=== PATIENT | male | born 1960 | race Two or more races ===

== ENCOUNTER 2016-10-26 01:37 | Inpatient (IN) | payer MEDICAID ==
[2016-10-26] VITALS (15 sets, daily range): BP systolic 111–154; BP diastolic 73–103
[~2016-10-26] VITALS: Ht 193 cm; Wt 139.0 kg
[2016-10-26] MEDS ORDERED: CLOPIDOGREL 300 MG TAB PO ONE (02:30)
[2016-10-26] MEDS ORDERED: NITROGLYCERIN 0.4MG/HR TOPICAL PATCH TD ONE (02:30)
[2016-10-26] MEDS ORDERED: MORPHINE SULFATE 4 MG/ML SYRG IV ONE (02:30)
[2016-10-26] MEDS ORDERED: ONDANSETRON HCL 4 MG/2 ML VIAL IV ONE (02:30)
[2016-10-26 02:43] LABS: Basophils # (auto) 0 uL; Basophils % (auto) 0.2 % (0.0-2.0); CONDITION Y; Eosinophils # (auto) 0.1 uL; Eosinophils % (auto) 1.2 % (0.0-7.0); Hemoglobin 11.5 g/dL (13.5-17.5); Lymphocytes # (auto) 0.7 uL; Lymphocytes % (auto) 10.8 % (10.0-50.0); Mean Corpuscular Hemoglobin 28.9 pg (28.0-32.0); Mean Corpuscular Hgb Conc. 32.7 g/dL (32.0-36.0); Mean Corpuscular Volume 88.2 fL (80.0-100.0); Mean Platelet Volume 8.9 fL (7.4-10.4); Monocytes # (auto) 0.7 uL; Monocytes % (auto) 10.6 % (0.0-12.0); Neutrophils # (auto) 4.7 uL; Neutrophils % (auto) 77.2 % (37.0-80.0); Platelet Count (auto) 226 10^3/uL (140-450); Red Cell Distribution Width 15.7 % (11.6-16.0); White Blood Cell 6.1 10^3/uL (4.4-10.8)
[2016-10-26 03:07] LABS: Calcium 8.8 mg/dL (8.5-10.1); Magnesium 1.8 mg/dL (1.6-2.6); Potassium 3.4 mmol/L (3.5-5.1)
[2016-10-26 03:09] LABS: BUN/Creatinine Ratio 12.1
[2016-10-26 03:29] LABS: Temperature: 22.7 C (20.0-25.0)
[2016-10-26 03:31] LABS: Total Protein 7.2 g/dL (6.4-8.2)
[2016-10-26 03:34] LABS: INR 1.19 (0.9-1.15); Partial Thromboplastin Time 28.7 sec (22.64-33.71)
[2016-10-26] MEDS ORDERED: LACTULOSE 20Gm/30ML SOLN PO PRN (06:45)
[2016-10-26] MEDS ORDERED: ONDANSETRON HCL 4 MG/2 ML VIAL IV PRN (06:45)
[2016-10-26] MEDS ORDERED: MORPHINE SULFATE 4 MG/ML SYRG IV PRN (06:45)
[2016-10-26] MEDS ORDERED: NITROGLYCERIN 0.4 MG SL TAB SL PRN (06:45)
[2016-10-26] MEDS: methylPREDNISolone SOD SUCC 125 MG/2 ML VL IV SCH ×2 (07:05→21:09)
[2016-10-26] MEDS: cefTRIAXone 1GM/50ML D5W 50 ML IV SCH (07:25)
[2016-10-26] MEDS: FUROSEMIDE 40 MG/4 ML VIAL IV SCH ×2 (08:00→18:14)
[2016-10-26] MEDS ORDERED: SPIRONOLACTONE 25 MG TAB PO SCH (08:00)
[2016-10-26] MEDS ORDERED: AZITHROMYCIN 500MG/D5W 250ML 250 ML IV ONE (08:00)
[2016-10-26] MEDS: ALBUTEROL SULF 2.5 MG/0.5ML(0.5%) NEB SOLN NEB SCH ×4 (09:54→22:18)
[2016-10-26] MEDS: IPRATROPIUM BROM 0.5 MG/2.5ML INH SOL NEB SCH ×4 (09:54→22:18)
[2016-10-26] MEDS ORDERED: hydrALAZINE HCL 25 MG TAB PO SCH (10:00)
[2016-10-26] MEDS ORDERED: ENOXAPARIN SOD 40 MG/0.4 ML SYRINGE SC SCH (10:00)
[2016-10-26] MEDS ORDERED: METOPROLOL TARTRATE 50 MG TAB PO SCH ×2 (10:00)
[2016-10-26] MEDS: NITROGLYCERIN 0.2MG/HR TOPICAL PATCH TD SCH (10:00)
[2016-10-26] MEDS: ASPirin 81 mg TAB PO SCH (10:45)
[2016-10-26] MEDS: PANTOPRAZOLE SODIUM 40 MG/10 ML VIAL IV SCH (10:45)
[2016-10-26] MEDS: LISINOPRIL 20 MG TAB PO SCH (10:46)
[2016-10-26] MEDS: AMIODARONE HCL 200 MG TAB PO SCH ×2 (10:46→21:10)
[2016-10-26] MEDS: ENALAPRIL MALEATE 10 MG TAB PO SCH (10:49)
[2016-10-26] MEDS: POTASSIUM CHL 20 Meq TABLET PO SCH ×2 (10:52→21:12)
[2016-10-26] MEDS ORDERED: METOPROLOL TARTRATE 50 MG TAB PO ONE (12:30)
[2016-10-26] MEDS ORDERED: PNEUMOCOCCAL VACC POLYS 25 MCG/0.5 ML VIAL IM ONE (13:00)
[2016-10-26] MEDS ORDERED: HEPARIN DRIP/D5W 100UNITS/ML 250 ML IV SCH ×2 (13:49→14:15)
[2016-10-26] MEDS ORDERED: HEPARIN SODIUM (PORCINE) 5000 UNITS/ML 1ML VIAL IV ONE (14:00)
[2016-10-26] MEDS: SODIUM CHLOR 0.9% PF (SALINE LOCK) 10ML VIAL IV SCH ×2 (14:40→21:12)
[2016-10-26] MEDS: HEPARIN DRIP/D5W 100UNITS/ML 250 ML IV SCH (15:26)
[2016-10-26] MEDS ORDERED: RIVAROXABAN 20 MG TAB PO ONE (18:00)
[2016-10-26] MEDS ORDERED: IOHEXOL 350 MG/ML 100ML IJ ONE (18:14)
[2016-10-26] MEDS: ATORVASTATIN 20 MG TAB PO SCH (21:11)
[2016-10-26] MEDS: METOPROLOL TARTRATE 50 MG TAB PO SCH (21:11)
[2016-10-26 23:08] LABS: INR 1.22 (0.9-1.15); Partial Thromboplastin Time 31.1 sec (22.64-33.71)
[2016-10-26 23:10] LABS: Prothrombin Time 13.3 sec (9.37-12.3)
[2016-10-27] VITALS (31 sets, daily range): BP systolic 106–163; BP diastolic 55–113
[2016-10-27] MEDS: IPRATROPIUM BROM 0.5 MG/2.5ML INH SOL NEB SCH ×6 (02:48→22:36)
[2016-10-27] MEDS: ALBUTEROL SULF 2.5 MG/0.5ML(0.5%) NEB SOLN NEB SCH ×6 (02:48→22:36)
[2016-10-27 04:08] LABS: Basophils # (auto) 0 uL; Basophils % (auto) 0.4 % (0.0-2.0); CONDITION Y; Eosinophils # (auto) 0 uL; Hemoglobin 12.1 g/dL (13.5-17.5); Lymphocytes # (auto) 0.6 uL; Lymphocytes % (auto) 7.6 % (10.0-50.0); Mean Corpuscular Hgb Conc. 32.6 g/dL (32.0-36.0); Monocytes # (auto) 0.2 uL; Monocytes % (auto) 2.5 % (0.0-12.0); Neutrophils # (auto) 7.4 uL; Neutrophils % (auto) 89.5 % (37.0-80.0); Platelet Count (auto) 260 10^3/uL (140-450); White Blood Cell 8.2 10^3/uL (4.4-10.8)
[2016-10-27 04:50] LABS: Albumin 3.5 g/dL (3.4-5.0); BUN/Creatinine Ratio 15.8; Bilirubin, Total 0.6 mg/dL (0.2-1.0); Potassium 4.9 mmol/L (3.5-5.1); Total Protein 8.4 g/dL (6.4-8.2)
[2016-10-27] MEDS ORDERED: POTASSIUM CHL 20 Meq TABLET PO ONE (05:00)
[2016-10-27] MEDS: cefTRIAXone 1GM/50ML D5W 50 ML IV SCH (06:14)
[2016-10-27] MEDS: FUROSEMIDE 40 MG/4 ML VIAL IV SCH ×2 (06:14→17:56)
[2016-10-27] MEDS: methylPREDNISolone SOD SUCC 125 MG/2 ML VL IV SCH ×2 (06:15→17:57)
[2016-10-27] MEDS: SODIUM CHLOR 0.9% PF (SALINE LOCK) 10ML VIAL IV SCH ×3 (06:16→22:00)
[2016-10-27 06:28] LABS: INR 1.23 (0.9-1.15); Partial Thromboplastin Time 30.6 sec (22.64-33.71)
[2016-10-27 06:35] LABS: Prothrombin Time 13.4 sec (9.37-12.3)
[2016-10-27] MEDS: HEPARIN DRIP/D5W 100UNITS/ML 250 ML IV SCH (07:36)
[2016-10-27] MEDS: ASPirin 81 mg TAB PO SCH (10:31)
[2016-10-27] MEDS: PANTOPRAZOLE SODIUM 40 MG/10 ML VIAL IV SCH (10:31)
[2016-10-27] MEDS: LISINOPRIL 20 MG TAB PO SCH (10:31)
[2016-10-27] MEDS: POTASSIUM CHL 20 Meq TABLET PO SCH ×2 (10:32→21:26)
[2016-10-27] MEDS: ENALAPRIL MALEATE 10 MG TAB PO SCH (10:32)
[2016-10-27] MEDS: AMIODARONE HCL 200 MG TAB PO SCH ×2 (10:33→21:27)
[2016-10-27] MEDS: AZITHROMYCIN 500MG/D5W 250ML 250 ML IV SCH (10:34)
[2016-10-27] MEDS: METOPROLOL TARTRATE 50 MG TAB PO SCH ×2 (10:34→21:28)
[2016-10-27] MEDS: NITROGLYCERIN 0.2MG/HR TOPICAL PATCH TD SCH (10:35)
[2016-10-27 14:35] LABS: Urine Bilirubin Negative (Negative); Urine Blood Negative /uL (Negative); Urine Color Yellow (Yellow); Urine Glucose Normal (Normal); Urine Hyaline Cast MOD /lpf (0 - 2); Urine Ketone Negative (Negative); Urine Mucus FEW (None Seen); Urine Nitrite Negative (Negative); Urine RBC 3 /hpf (0 - 3); Urine Squamous Epithelial Cell FEW /hpf (<5); Urine Urobilinogen Normal (Negative); Urine pH 5.5 (5.0-8.0)
[2016-10-27] MEDS: RIVAROXABAN 20 MG TAB PO SCH (17:57)
[2016-10-27] MEDS ORDERED: RIVAROXABAN 20 MG TAB PO SCH (18:00)
[2016-10-27] MEDS ORDERED: PATIENTS OWN MEDICATION (XARELTO 20 MG) PO SCH (18:00)
[2016-10-27] MEDS: ATORVASTATIN 20 MG TAB PO SCH (21:28)
[2016-10-28] MEDS: ALBUTEROL SULF 2.5 MG/0.5ML(0.5%) NEB SOLN NEB SCH ×6 (02:20→22:00)
[2016-10-28] MEDS: IPRATROPIUM BROM 0.5 MG/2.5ML INH SOL NEB SCH ×6 (02:22→22:00)
[2016-10-28 05:00] VITALS: BP 151/104
[2016-10-28 05:55] LABS: Basophils # (auto) 0 uL; CONDITION Y; Eosinophils # (auto) 0 uL; Hemoglobin 10.4 g/dL (13.5-17.5); Lymphocytes # (auto) 0.4 uL; Lymphocytes % (auto) 3.4 % (10.0-50.0); Mean Corpuscular Hemoglobin 29.3 pg (28.0-32.0); Mean Corpuscular Hgb Conc. 32.7 g/dL (32.0-36.0); Mean Corpuscular Volume 89.8 fL (80.0-100.0); Mean Platelet Volume 9.6 fL (7.4-10.4); Monocytes # (auto) 0.5 uL; Monocytes % (auto) 4.3 % (0.0-12.0); Neutrophils # (auto) 11.7 uL; Neutrophils % (auto) 92.3 % (37.0-80.0); Platelet Count (auto) 244 10^3/uL (140-450); Red Cell Distribution Width 15.8 % (11.6-16.0); White Blood Cell 12.7 10^3/uL (4.4-10.8)
[2016-10-28] MEDS: cefTRIAXone 1GM/50ML D5W 50 ML IV SCH (06:20)
[2016-10-28] MEDS: methylPREDNISolone SOD SUCC 125 MG/2 ML VL IV SCH ×2 (06:20→18:07)
[2016-10-28] MEDS: FUROSEMIDE 40 MG/4 ML VIAL IV SCH ×2 (06:20→18:07)
[2016-10-28] MEDS: SODIUM CHLOR 0.9% PF (SALINE LOCK) 10ML VIAL IV SCH ×3 (06:20→22:03)
[2016-10-28 06:22] LABS: Albumin 3.2 g/dL (3.4-5.0); BUN/Creatinine Ratio 20.4; Bilirubin, Total 0.5 mg/dL (0.2-1.0); Calcium 9.1 mg/dL (8.5-10.1); Magnesium 2.2 mg/dL (1.6-2.6); Phosphorus 3.3 mg/dL (2.5-4.90); Potassium 4.9 mmol/L (3.5-5.1); Total Protein 7.3 g/dL (6.4-8.2)
[2016-10-28] MEDS ORDERED: LIDOCAINE VISCOUS 2% 15ML UD MT PRN (08:30)
[2016-10-28] MEDS ORDERED: fentaNYL CITRATE 100 MCG/2 ML VL IV ONE (08:30)
[2016-10-28] MEDS ORDERED: MIDAZOLAM HCL 1MG/1ML-2 ML VIAL IV ONE (08:30)
[2016-10-28 09:00] VITALS: BP 141/99
[2016-10-28] MEDS ORDERED: diphenhdrAMINE HCL 50 MG/1 ML VL ONE (09:50)
[2016-10-28] MEDS: NITROGLYCERIN 0.2MG/HR TOPICAL PATCH TD SCH (10:00)
[2016-10-28] MEDS ORDERED: hydrALAZINE HCL 20 MG/ML VL ONE (10:07)
[2016-10-28] MEDS ORDERED: diphenhdrAMINE HCL 50 MG/1 ML VL IV ONE (10:15)
[2016-10-28] MEDS ORDERED: hydrALAZINE HCL 20 MG/ML VL IV ONE (10:15)
[2016-10-28] MEDS: PANTOPRAZOLE SODIUM 40 MG/10 ML VIAL IV SCH (12:21)
[2016-10-28] MEDS: POTASSIUM CHL 20 Meq TABLET PO SCH ×2 (12:22→22:03)
[2016-10-28] MEDS: LISINOPRIL 20 MG TAB PO SCH (12:23)
[2016-10-28] MEDS: AMIODARONE HCL 200 MG TAB PO SCH ×2 (12:23→22:03)
[2016-10-28] MEDS: METOPROLOL TARTRATE 50 MG TAB PO SCH ×2 (12:24→22:04)
[2016-10-28] MEDS: AZITHROMYCIN 500MG/D5W 250ML 250 ML IV SCH (12:24)
[2016-10-28 13:00] VITALS: BP 159/104
[2016-10-28 17:12] VITALS: BP 142/76
[2016-10-28] MEDS: RIVAROXABAN 20 MG TAB PO SCH (18:07)
[2016-10-28 22:00] VITALS: BP 143/98
[2016-10-28] MEDS: ATORVASTATIN 20 MG TAB PO SCH (22:03)
[2016-10-29] MEDS: ALBUTEROL SULF 2.5 MG/0.5ML(0.5%) NEB SOLN NEB SCH ×6 (02:20→22:50)
[2016-10-29] MEDS: IPRATROPIUM BROM 0.5 MG/2.5ML INH SOL NEB SCH ×6 (02:20→22:50)
[2016-10-29 05:00] VITALS: BP 147/97
[2016-10-29] MEDS: FUROSEMIDE 40 MG/4 ML VIAL IV SCH ×2 (06:08→18:34)
[2016-10-29] MEDS: SODIUM CHLOR 0.9% PF (SALINE LOCK) 10ML VIAL IV SCH ×3 (06:08→22:02)
[2016-10-29] MEDS: cefTRIAXone 1GM/50ML D5W 50 ML IV SCH (06:35)
[2016-10-29] MEDS: methylPREDNISolone SOD SUCC 125 MG/2 ML VL IV SCH ×2 (06:36→18:34)
[2016-10-29 08:18] VITALS: BP 147/93
[2016-10-29 09:18] VITALS: BP 128/98
[2016-10-29] MEDS: AZITHROMYCIN 500MG/D5W 250ML 250 ML IV SCH (10:07)
[2016-10-29] MEDS: PANTOPRAZOLE SODIUM 40 MG/10 ML VIAL IV SCH (10:08)
[2016-10-29] MEDS: POTASSIUM CHL 20 Meq TABLET PO SCH ×2 (10:10→22:01)
[2016-10-29] MEDS: LISINOPRIL 20 MG TAB PO SCH (10:11)
[2016-10-29] MEDS: AMIODARONE HCL 200 MG TAB PO SCH ×2 (10:11→22:01)
[2016-10-29] MEDS: METOPROLOL TARTRATE 50 MG TAB PO SCH ×2 (10:12→22:02)
[2016-10-29] MEDS: NITROGLYCERIN 0.2MG/HR TOPICAL PATCH TD SCH (10:13)
[2016-10-29 13:11] VITALS: BP 133/65
[2016-10-29 17:22] VITALS: BP 135/69
[2016-10-29] MEDS: RIVAROXABAN 20 MG TAB PO SCH (18:34)
[2016-10-29] MEDS: ATORVASTATIN 20 MG TAB PO SCH (22:01)
[2016-10-30] MEDS ORDERED: OXYMETAZOLINE HCL 0.05 % NASAL SPRAY 15ML ONE (02:28)
[2016-10-30] MEDS: FUROSEMIDE 40 MG/4 ML VIAL IV SCH ×2 (06:04→18:35)
[2016-10-30] MEDS: SODIUM CHLOR 0.9% PF (SALINE LOCK) 10ML VIAL IV SCH ×3 (06:04→22:15)
[2016-10-30] MEDS: ALBUTEROL SULF 2.5 MG/0.5ML(0.5%) NEB SOLN NEB SCH ×6 (06:23→22:51)
[2016-10-30] MEDS: IPRATROPIUM BROM 0.5 MG/2.5ML INH SOL NEB SCH ×6 (06:23→22:51)
[2016-10-30] MEDS: cefTRIAXone 1GM/50ML D5W 50 ML IV SCH (06:40)
[2016-10-30] MEDS: methylPREDNISolone SOD SUCC 125 MG/2 ML VL IV SCH ×2 (06:40→19:50)
[2016-10-30 09:00] VITALS: BP 139/92
[2016-10-30] MEDS: NITROGLYCERIN 0.2MG/HR TOPICAL PATCH TD SCH (10:00)
[2016-10-30] MEDS: PANTOPRAZOLE SODIUM 40 MG/10 ML VIAL IV SCH (10:21)
[2016-10-30] MEDS: AMIODARONE HCL 200 MG TAB PO SCH ×2 (10:21→22:14)
[2016-10-30] MEDS: AZITHROMYCIN 500MG/D5W 250ML 250 ML IV SCH (10:23)
[2016-10-30] MEDS: LISINOPRIL 20 MG TAB PO SCH (10:23)
[2016-10-30] MEDS: POTASSIUM CHL 20 Meq TABLET PO SCH ×2 (10:23→22:14)
[2016-10-30] MEDS: METOPROLOL TARTRATE 50 MG TAB PO SCH ×2 (10:23→22:15)
[2016-10-30 13:00] VITALS: BP 129/82
[2016-10-30] MEDS ORDERED: FURO40TA4 PO (16:41)
[2016-10-30] MEDS ORDERED: METO-158 PO (16:41)
[2016-10-30] MEDS ORDERED: HYDR-2652 PO (16:41)
[2016-10-30] MEDS ORDERED: POTA-165 PO (16:41)
[2016-10-30] MEDS ORDERED: AMIO200T33 PO (16:41)
[2016-10-30] MEDS ORDERED: SPIR25TA88 PO (16:41)
[2016-10-30] MEDS ORDERED: LISI-646 PO (16:41)
[2016-10-30 16:48] VITALS: BP 151/95
[2016-10-30 17:32] VITALS: BP 129/82
[2016-10-30] MEDS: RIVAROXABAN 20 MG TAB PO SCH (18:36)
[2016-10-30 22:05] VITALS: BP 158/108
[2016-10-30] MEDS: ATORVASTATIN 20 MG TAB PO SCH (22:14)
[2016-10-30] MEDS ORDERED: ZOLPIDEM TARTRATE 5 MG TAB PO PRN (22:30)
[2016-10-31] MEDS: ALBUTEROL SULF 2.5 MG/0.5ML(0.5%) NEB SOLN NEB SCH ×2 (02:14→07:20)
[2016-10-31] MEDS: IPRATROPIUM BROM 0.5 MG/2.5ML INH SOL NEB SCH ×2 (02:14→07:20)
[2016-10-31 05:09] VITALS: BP 156/84
[2016-10-31] MEDS: SODIUM CHLOR 0.9% PF (SALINE LOCK) 10ML VIAL IV SCH (06:13)
[2016-10-31] MEDS: FUROSEMIDE 40 MG/4 ML VIAL IV SCH (06:13)
[2016-10-31] MEDS: cefTRIAXone 1GM/50ML D5W 50 ML IV SCH (06:40)
[2016-10-31] MEDS: methylPREDNISolone SOD SUCC 125 MG/2 ML VL IV SCH (06:40)
[2016-10-31 08:02] LABS: Basophils # (auto) 0 uL; Basophils % (auto) 0.1 % (0.0-2.0); CONDITION Y; Eosinophils # (auto) 0 uL; Eosinophils % (auto) 0.1 % (0.0-7.0); Hematocrit 26.1 % (41.0-53.0); Hemoglobin 8.7 g/dL (13.5-17.5); Lymphocytes # (auto) 0.3 uL; Lymphocytes % (auto) 2.8 % (10.0-50.0); Mean Corpuscular Hemoglobin 29.6 pg (28.0-32.0); Mean Corpuscular Hgb Conc. 33.5 g/dL (32.0-36.0); Mean Corpuscular Volume 88.4 fL (80.0-100.0); Monocytes # (auto) 0.3 uL; Monocytes % (auto) 3.2 % (0.0-12.0); Neutrophils # (auto) 9.4 uL; Neutrophils % (auto) 93.8 % (37.0-80.0); Platelet Count (auto) 228 10^3/uL (140-450); Red Cell Distribution Width 15.7 % (11.6-16.0)
[2016-10-31 09:00] VITALS: BP 153/84
== END 2016-10-31 10:48 | disposition home or self-care (01) | DRG 190 ==
LOC: EDBD 01:37 → ER 01:46 → TELE 01:47 → TELE-E-ADS 08:04 → TELE-WESTW 10:20 → ICU WEST 18:45 → TELE-WESTW 10-27 14:20
PROVIDERS: ADMIT Family Medicine; ATTEND Family Medicine
PROC: 5A2204Z Restoration of Cardiac Rhythm, Single (ICD-10-PCS; principal; 2016-10-28)
PROC: B246ZZ4 Ultrasonography of Right and Left Heart, Transesophageal (ICD-10-PCS; 2016-10-28)
DX: I21.4 Non-ST elevation (NSTEMI) myocardial infarction (principal); I50.43 Acute on chronic combined systolic (congestive) and diastolic (congestive) heart failure; I42.9 Cardiomyopathy, unspecified; N17.9 Acute kidney failure, unspecified; N18.3 Chronic kidney disease, stage 3 (moderate); E44.1 Mild protein-calorie malnutrition; R04.2 Hemoptysis; I13.0 Hypertensive heart and chronic kidney disease with heart failure and stage 1 through stage 4 chronic kidney disease, or unspecified chronic kidney disease; I25.10 Atherosclerotic heart disease of native coronary artery without angina pectoris; J98.11 Atelectasis; E66.9 Obesity, unspecified; F19.10 Other psychoactive substance abuse, uncomplicated; R00.0 Tachycardia, unspecified; R04.0 Epistaxis; T50.8X5A Adverse effect of diagnostic agents, initial encounter; F17.200 Nicotine dependence, unspecified, uncomplicated; I48.0 Paroxysmal atrial fibrillation; N14.1 Nephropathy induced by other drugs, medicaments and biological substances; I25.2 Old myocardial infarction; Z85.038 Personal history of other malignant neoplasm of large intestine; Z91.19 Patient's noncompliance with other medical treatment and regimen; Z71.6 Tobacco abuse counseling; Z23 Encounter for immunization; Z68.37 Body mass index [BMI] 37.0-37.9, adult
CPT/HCPCS: 36415; 71010; 71275; 76775; 80053; 80061; 81001; 82306; 82570; 83735; 83880; 83970; 84100; 84156; 84443; 84484; 84550; 85025; 85379; 85610; 85730; 87040; 87070; 87077; 87081; 87186; 87205; 93005; 93312; 93970; 94640; 96374; 96375; 99291; C9113; J0696; J2250; J2405

== ENCOUNTER 2016-11-08 23:18 | Inpatient (IN) | payer MEDICAID ==
[~2016-11-08] VITALS: Ht 193 cm; Wt 135.9 kg
[~2016-11-08 23:18] MED LIST: AMIO200T33 PO; FURO40TA4 PO; HYDR-2652 PO; LISI-646 PO; METO-158 PO; POTA-165 PO; SPIR25TA88 PO
[2016-11-09 00:07] LABS: Albumin 2.7 g/dL (3.4-5.0); BUN/Creatinine Ratio 17.7; Calcium 8.6 mg/dL (8.5-10.1); Magnesium 1.9 mg/dL (1.6-2.6); Potassium 3.9 mmol/L (3.5-5.1)
[2016-11-09 00:09] LABS: INR 1.05 (0.9-1.15); Partial Thromboplastin Time 23.6 sec (22.64-33.71); Prothrombin Time 11.5 sec (9.37-12.3)
[2016-11-09 00:15] LABS: Bilirubin, Total 0.4 mg/dL (0.2-1.0); Total Protein 6.6 g/dL (6.4-8.2)
[2016-11-09 00:34] LABS: B-Type Natriuretic Peptide 296.07 pg/mL (0-100); Temperature: 23.1 C (20.0-25.0)
[2016-11-09 00:48] LABS: Basophils # (auto) 0 uL; Basophils % (auto) 0.1 % (0.0-2.0); CONDITION Y; DEFINITIVE SEE PRINTOUT; Eosinophils # (auto) 0.1 uL; Eosinophils % (auto) 1.4 % (0.0-7.0); Hematocrit 21.7 % (41.0-53.0); Hemoglobin 7.2 g/dL (13.5-17.5); Lymphocytes # (auto) 0.9 uL; Lymphocytes % (auto) 11.4 % (10.0-50.0); Mean Corpuscular Hemoglobin 29.2 pg (28.0-32.0); Mean Corpuscular Hgb Conc. 33.2 g/dL (32.0-36.0); Mean Corpuscular Volume 88.1 fL (80.0-100.0); Monocytes % (auto) 12.6 % (0.0-12.0); Neutrophils # (auto) 5.7 uL; Neutrophils % (auto) 74.5 % (37.0-80.0); Platelet Count (auto) 152 10^3/uL (140-450); Red Cell Distribution Width 17.3 % (11.6-16.0); White Blood Cell 7.6 10^3/uL (4.4-10.8)
[2016-11-09] MEDS ORDERED: ONDANSETRON HCL 4 MG/2 ML VIAL IV ONE (01:00)
[2016-11-09] MEDS ORDERED: NITROGLYCERIN 0.4 MG SL TAB SL ONE (01:00)
[2016-11-09] MEDS ORDERED: MORPHINE SULFATE 4 MG/ML SYRG IV ONE ×2 (01:00→02:30)
[2016-11-09] MEDS ORDERED: ATORVASTATIN 20 MG TAB PO ONE (01:00)
[2016-11-09] MEDS ORDERED: ATORVASTATIN 20 MG TAB ONE ×2 (01:40→01:42)
[2016-11-09] MEDS ORDERED: NITROGLYCERIN 2% OINT 1GM PKG TD ONE (02:30)
[2016-11-09] MEDS ORDERED: ASPirin 81 mg TAB PO ONE (05:30)
[2016-11-09] MEDS ORDERED: SODIUM CHLORIDE 0.9% 1,000 ML IV SCH (05:33)
[2016-11-09] MEDS ORDERED: IOHEXOL 350 MG/ML 100ML IJ ONE (05:41)
[2016-11-09] MEDS ORDERED: NITROGLYCERIN 0.4 MG SL TAB SL PRN (05:45)
[2016-11-09] MEDS ORDERED: MORPHINE SULF INJ 2 MG/ML SYRINGE 1ML IV PRN (05:45)
[2016-11-09] MEDS ORDERED: LACTULOSE 20Gm/30ML SOLN PO PRN (05:45)
[2016-11-09] MEDS ORDERED: SPIRONOLACTONE 25 MG TAB PO SCH (06:00)
[2016-11-09] MEDS ORDERED: ENOXAPARIN SOD 120 MG/0.8 ML SYRINGE SC SCH (06:00)
[2016-11-09] MEDS ORDERED: FUROSEMIDE 20 MG TAB PO SCH (06:00)
[2016-11-09] MEDS ORDERED: SPIRONOLACTONE 25 MG TAB ONE (06:11)
[2016-11-09] MEDS ORDERED: ENOXAPARIN SOD 120 MG/0.8 ML SYRINGE SC ONE (06:12)
[2016-11-09] MEDS ORDERED: FUROSEMIDE 40 MG TAB ONE (06:12)
[2016-11-09] MEDS ORDERED: ASPirin 81 mg TAB ONE (06:18)
[2016-11-09] MEDS ORDERED: METOPROLOL TARTRATE 50 MG TAB ONE (09:08)
[2016-11-09] MEDS ORDERED: LISINOPRIL 10 MG TAB ONE (09:08)
[2016-11-09 09:26] VITALS: BP 163/99
[2016-11-09] MEDS ORDERED: RIV20T PO (09:47)
[2016-11-09] MEDS ORDERED: LISINOPRIL 20 MG TAB PO SCH (10:00)
[2016-11-09] MEDS ORDERED: AMIODARONE HCL 200 MG TAB PO SCH (10:00)
[2016-11-09] MEDS ORDERED: POTASSIUM CHL 20 Meq TABLET PO SCH (10:00)
[2016-11-09] MEDS ORDERED: METOPROLOL TARTRATE 50 MG TAB PO SCH (10:00)
[2016-11-09] MEDS ORDERED: PATIENTS OWN MEDICATION (XARELTO 20 MG) PO SCH (10:00)
[2016-11-09] MEDS ORDERED: hydrALAZINE HCL 25 MG TAB PO SCH (10:00)
[2016-11-09] MEDS ORDERED: ASPirin 81 mg TAB PO SCH (10:00)
[2016-11-09 11:32] VITALS: BP 135/85
[2016-11-09 12:20] VITALS: BP 137/78
[2016-11-09 16:42] VITALS: BP 142/81
[2016-11-09 17:08] VITALS: BP 135/85
[2016-11-09] MEDS ORDERED: RIVAROXABAN 20 MG TAB PO SCH (18:00)
[2016-11-09] MEDS ORDERED: ATORVASTATIN 20 MG TAB PO SCH (22:00)
== END 2016-11-09 20:10 | disposition home or self-care (01) | DRG 111 ==
LOC: EDBD 23:18 → ER 23:23 → TELE 23:24 → ER 11-09 00:29 → TELE 11-09 07:58 → TELE-E-ADS 11-09 09:05 → TELE-CENTR 11-09 10:49
PROVIDERS: ADMIT Family Medicine; ATTEND Family Medicine
DX: R42 Dizziness and giddiness (principal); I21.4 Non-ST elevation (NSTEMI) myocardial infarction; I50.43 Acute on chronic combined systolic (congestive) and diastolic (congestive) heart failure; E66.01 Morbid (severe) obesity due to excess calories; I42.0 Dilated cardiomyopathy; I48.91 Unspecified atrial fibrillation; I11.0 Hypertensive heart disease with heart failure; F17.210 Nicotine dependence, cigarettes, uncomplicated; I25.10 Atherosclerotic heart disease of native coronary artery without angina pectoris; Z85.038 Personal history of other malignant neoplasm of large intestine; Z86.73 Personal history of transient ischemic attack (TIA), and cerebral infarction without residual deficits; I25.2 Old myocardial infarction; E03.9 Hypothyroidism, unspecified; Z79.4 Long term (current) use of insulin; Z98.61 Coronary angioplasty status; Z71.89 Other specified counseling
CPT/HCPCS: 36415; 71010; 71275; 80053; 83735; 83880; 84484; 85379; 85610; 85730; 93005; 93970; 94761; 96361; 96372; 96374; 96375; J2405